=== PATIENT | female | born 1975 | race Caucasian/White ===

== ENCOUNTER 2017-10-29 12:38 | Day surgery (SDC) | payer BC ==
[2017-10-29] MEDS ORDERED: Bupivacaine 0.5% PF 10 ML VIAL INJ ONE (13:17)
[2017-10-29 14:43] VITALS: BP 144/88
--- NOTE | 2017-10-30 00:58 | OP ---
DATE OF OPERATION: 10/29/17 [facility] DATE OF : 75 SURGEON: Joe Delaney MD STROKE BELT SANDER OPERATOR: RODRIGUEZ Chong ANESTHESIOLOGIST: None. ANESTHESIA: Local only with 0.5% Marcaine used for digital block. PRE-OP DIAGNOSIS: Left thumb dorsal skin and subcutaneous mass. POST-OP DIAGNOSIS: Left thumb dorsal skin and subcutaneous mass. OPERATIVE PROCEDURE: Excision of left thumb dorsal skin and subcutaneous mass. INDICATIONS: Lb has had a mass externally over the dorsum of the dorsum of the left thumb IP joint over the last couple of months. She is unsure what started it all. She does not remember getting any foreign material there. I told her we should excise and get a diagnosis. She understands the risk of wound problems and stiffness. ESTIMATED BLOOD LOSS: 1 mL. COMPLICATIONS: None. FINDINGS: There was some black material just deep to the skin and almost in the dermal layer noted upon mass excision. DESCRIPTION OF PROCEDURE: Lb was seen in the preoperative holding area. He had a time-out. I then performed the digital block with 0.5% Marcaine. A short time later he came back to the operating room. The arm was prepped and draped in the usual fashion. A time-out was performed. I ellipsed out the most central disease portion of the skin together with the mass. The deep excision was carried out marginally with the [place] blade. Once the entirety of the mass was excised, handed off the specimen. I noted some blackish looking almost foreign material. It looked like it was in the dermis. Once the mass was fully excised, I closed the horizontal wound with a couple of 4-0 nylon interrupted sutures. The wound was dressed and then the tourniquet which had been placed at the beginning of the procedure was released. The thumb picked up immediately. She was then taken to the recovery room in stable condition. [id number]/[facility] #: [id number] [facility] MEDICAL CENTERGricelda
== END 2017-10-29 14:56 | disposition home or self-care (01) ==
LOC: OREAST 12:38
PROVIDERS: ATTEND Orthopaedic Surgery Hand Surgery
DX: R22.32 Localized swelling, mass and lump, left upper limb (principal)
CPT/HCPCS: 88304

== ENCOUNTER 2018-08-23 12:39 | Observation (INO) | payer BC ==
[2018-08-23] MEDS ORDERED: NS 0.9% 1000 ML** 1,000 ML IV ONE (13:00)
--- NOTE | 2018-08-23 13:16 | ED ---
Abdominal Pain/Female - HPI Summary HPI Summary: This pt is a 43 y/o female presenting to [facility] c/o RLQ abd pain and nausea today. Pt reports she was feeling well yesterday and this morning woke up with abd pain. She took antacid and Tylenol this morning without relief. Denies vomiting, diarrhea, constipation. The last time she ate was yesterday during dinner, has not had food today. She reports having had this pain once before but it "went away after a couple of hours." LMP: does not get menses because she has an IUD. Denies hx of appendectomy. Denies any other PMHx o PSHx. Pt notes drinking wine, but denies tobacco and drug use. - History of Current Complaint Chief Complaint: EDAbdPain Stated Complaint: ABD PAIN PER PT Time Seen by Provider: 08/23/18 13:00 Hx Obtained From: Patient Onset/Duration: Lasting Hours, Still Present Timing: Hours Severity Currently: Severe Pain Intensity: 8 Pain Scale Used: 0-10 Numeric Location: Discrete At: RLQ Radiates: No Aggravating Factor(s): Nothing Alleviating Factor(s): Nothing Associated Signs and Symptoms: Positive: Nausea. Negative: Fever, Constipation , Vomiting, Diarrhea Allergies/Adverse Reactions: Allergies Allergy/AdvReac Type Severity Reaction Status Date / Time No Known Allergies Allergy Verified 08/23/18 12:48 PMH/Surg Hx/FS Hx/Imm Hx Endocrine/Hematology History: Denies: Hx Diabetes Cardiovascular History: Denies: Hx Hypertension Musculoskeletal History: Denies: Hx Rheumatoid Arthritis, Hx Osteoporosis - Cancer History Hx Chemotherapy: No Hx Radiation Therapy: No - Surgical History Surgery Procedure, Year, and Place: None Infectious Disease History: No Infectious Disease History: Denies: Traveled Outside the [place] in Last 30 Days - Family History Known Family History: Negative: Cardiac Disease, Hypertension, Diabetes - Social History Alcohol Use: Daily Alcohol Amount: 1 GLASS OF WINE AT DINNER Substance Use Type: Reports: None Smoking Status (MU): Never Smoked Tobacco Review of Systems Negative: Fever, Chills Positive: Abdominal Pain, Nausea. Negative: Vomiting, Diarrhea, Other - NEG: constipation All Other Systems Reviewed And Are Negative: Yes Physical Exam - Summary Physical Exam Summary: VITAL SIGNS: Reviewed. GENERAL: Patient is a well-developed and nourished female who is lying comfortable in the stretcher. Patient is not in any acute respiratory distress. HEAD AND FACE: Normocephalic and atraumatic. EYES: PERRLA, EOMI x 2, No injected conjunctiva. EARS: Hearing grossly intact. Ear canals and tympanic membranes are WNL. MOUTH: Oropharynx within normal limits. Oral mucosa is dry. NECK: Supple, trachea is midline, no adenopathy, no JVD. CHEST: Symmetric, no tenderness at palpation LUNGS: Clear to auscultation bilaterally. No wheezing or crackles. CVS: RRR, S1 and S2 present, no murmurs or gallops appreciated. ABDOMEN: Soft, RLQ tenderness. No signs of distention. Positive bowel sounds. EXTREMITIES: FROM in all major joints, no edema, no cyanosis or clubbing. NEURO: Alert and oriented x 3. No acute neurological deficits. Speech is normal. SKIN: Dry and warm. Triage Information Reviewed: Yes Vital Signs On Initial Exam: Initial Vitals Temp Pulse Resp BP Pulse Ox 97.8 F 57 16 200/92 100 08/23/18 12:46 08/23/18 12:46 08/23/18 12:46 08/23/18 12:46 08/23/18 12:46 Vital Signs Reviewed: Yes Diagnostics - Vital Signs Vital Signs Temp Pulse Resp BP Pulse Ox 08/23/18 12:46 97.8 F 57 16 200/92 100 - Laboratory Result Diagrams: 08/23/18 13:12 08/23/18 13:12 Lab Statement: Any lab studies that have been ordered have been reviewed, and results considered in the medical decision making process. - CT Abdomen/Pelvis CT CT Interpretation Completed By: Radiologist Summary of CT Findings: IMPRESSION: Acute appendicitis. No visualized appendicolith. Negative for periappendiceal abscess. Results discussed [facility] Dr. Duque 08/23/2018 4:28 PM EDT. - EKG 13:25 Cardiac Rate: Bradycardia - at 50 bpm EKG Rhythm: Sinus Bradycardia Summary of EKG Findings: No ST elevations. Normal axis. Abdominal Pain Fem Course/Dx - Course Course Of Treatment: This pt is a 43 y/o female presenting to [facility] c/o RLQ abd pain and nausea today. Pt reports she was feeling well yesterday and this morning woke up with abd pain. She took antacid and Tylenol this morning without relief. Denies vomiting, diarrhea, constipation. The last time she ate was yesterday during dinner, has not had food today. She reports having had this pain once before but it "went away after a couple of hours.". LMP: does not get menses because she has an IUD. Denies any other PMHx o PSHx. Pt notes drinking wine, but denies tobacco and drug use. Blood work without any significant abnormality except for WBCs of 15, sodium 132, chloride 98, creatinine 0.48, glucose 124, CRP of 11.7. Beta hCG is negative. Abdominal and pelvic CT IMPRESSION: #. Acute appendicitis. No visualized appendicolith. Negative for periappendiceal abscess. I discussed my physical exam and findings with Dr. Syed from surgery and he accepted the patient for admission to his services. Patient is hemodynamically stable alert oriented 3 - Diagnoses Provider Diagnoses: Acute appendicitis - Provider Notifications Discussed Care Of Patient With: Luis Reid Time Discussed With Above Provider: 16:29 Instructed by Provider To: Other - Dr. Reid, radiologist, reports CT shows acute appendicitis. [16:32] Discussed with Dr. Syed, hospitalist, who accepted the pt for admission. Discharge - Sign-Out/Discharge Documenting (check all that apply): Patient Departure - Admit to [facility] surgery Patient Received Moderate/Deep Sedation with Procedure: No - Discharge Plan Condition: Stable Disposition: ADMITTED TO [facility] Referrals: Erick Elias MD [Primary Care Provider] - - Billing Disposition and Condition Condition: STABLE Disposition: Admitted to [facility] - Attestation Statements Document Initiated by Duane: Yes Documenting Scribe: Carmela Carrasquillo Provider For Whom Duane is Documenting (Include Credential): Luis Duque MD Scribe Attestation: Carmela Parker, scribed for Luis Duque MD on 08/23/18 at 1636. Scribe Documentation Reviewed: Yes Provider Attestation: The documentation as recorded by the Carmela barker accurately reflects the service I personally performed and the decisions made by me, Luis Duque MD Status of Scribe Document: Viewed
[2018-08-23 13:57] LABS: ABS Lymphocytes 0.3 10^3/ul (1.0-4.8); ABS Monocytes 0.6 10^3/ul (0-0.8); Hematocrit 40 % (35-47); Hemoglobin 13.3 g/dL (12.0-16.0); Lymphocyte % 2.1 %; Mean Corpuscular HGB Conc 34 g/dL (31-36); Mean Corpuscular Hemoglobin 31 pg (27-31); Mean Corpuscular Volume 93 fL (80-97); Mean Platelet Volume 8.4 fL (7.4-10.4); Platelet Count 239 10^3/uL (150-450); Red Blood Count 4.25 10^6 /uL (3.70-4.87); Red Cell Distribution Width 13 % (10.5-15)
[2018-08-23 14:17] LABS: ALT 24 U/L (7-52); AST 23 U/L (13-39); Albumin 4.4 g/dL (3.2-5.2); Albumin/Globulin Ratio 1.6 (1-3); Alkaline Phosphatase 55 U/L (34-104); Amylase 50 U/L (29-103); Anion Gap 7 mmol/L (2-11); BUN/Creatinine Ratio 18.8 (8-20); Blood Urea Nitrogen 9 mg/dL (6-24); C Reactive Protein 11.78 mg/L (<8.01); CO2 Carbon Dioxide 27 mmol/L (22-32); Calcium 9.2 mg/dL (8.6-10.3); Chloride 98 mmol/L (101-111); Creatine Kinase 70 U/L (10-223); EGFR African American 170.8 (>60); EGFR Non-African American 141.2 (>60); Globulin 2.8 g/dL (2-4); Glucose 124 mg/dL (70-100); Potassium 3.8 mmol/L (3.5-5.0); Sodium 132 mmol/L (135-145); Total Protein 7.2 g/dL (6.4-8.9)
[2018-08-23 14:21] LABS: HCG Pregnancy < 0.60 mIU/mL
[2018-08-23] MEDS ORDERED: Iohexol 300* (CONTRAST) 10 ML SDV IV ONE (15:22)
[2018-08-23 16:41] LABS: Urine Appearance Clear; Urine Bacteria 1+ (Absent); Urine Bilirubin Negative (Negative); Urine Blood 2+ (Negative); Urine Color Straw; Urine Glucose Negative (Negative); Urine Ketones 1+ (Negative); Urine Nitrite Negative (Negative); Urine Protein Negative (Negative); Urine Red Blood Cell 3+(>10/hpf) (Absent); Urine Specific Gravity 1.005 (1.010-1.030); Urine Squamous Epithelial Cell Present (Absent); Urine Urobilinogen Negative (Negative); Urine White Blood Cell Trace(0-5/hpf) (Absent)
[2018-08-23] MEDS ORDERED: ED Piperacillin/Tazobac 3.375 3.375 GM/100 ML PREMIX.SET IVPB ONE (17:01)
[2018-08-23] MEDS ORDERED: Piperacillin/Tazobac (*) 3.375 GM BAG ONE (17:12)
[2018-08-23] MEDS ORDERED: ZOSYN 3.375 GM x ONE DOSE over 30 miuntes IVPB ×2 (17:15)
[2018-08-23] MEDS ORDERED: Lidocaine 2% PF * 5 ML VIAL ONE (17:16)
[2018-08-23] MEDS ORDERED: Cisatracurium* 2 MG/ML MDV 5 ML ONE (17:16)
[2018-08-23] MEDS ORDERED: Propofol* 10 MG/ML 20 ML BTL ONE (17:16)
[2018-08-23] MEDS ORDERED: Midazolam* 1 MG/ML 5 ML VIAL (5 MG) ONE (17:16)
[2018-08-23] MEDS ORDERED: Ondansetron INJ* 2 MG/ML VIAL ONE (17:16)
[2018-08-23] MEDS ORDERED: Dexamethasone IV* 4 MG/ML 1 ML (4 MG) ONE (17:16)
[2018-08-23] MEDS ORDERED: fentaNYL* 50 MCG/ML 2 ML VIAL (100 MCG VIAL) ONE (17:16)
[2018-08-23] MEDS ORDERED: Bupivacaine 0.25% EPI 200,000* 30 ML SDV ONE (17:26)
[2018-08-23] MEDS ORDERED: Metoclopramide IV* 5 MG/ML 2 ML VIAL ONE (18:05)
[2018-08-23] MEDS ORDERED: EPHEDrine (Pressors)* 50 MG/ML VIAL ONE (18:06)
--- NOTE | 2018-08-23 18:41 | HP ---
CC: Dr. Octaviano Elias * HISTORY AND PHYSICAL: DATE OF ADMISSION: 08/23/18 CHIEF COMPLAINT: Right lower quadrant abdominal pain. HISTORY OF PRESENT ILLNESS: Ms. Lb Joyce is a very healthy 43-year-old woman who woke up this morning with generalized abdominal discomfort. This was associated with some anorexia, slight nausea but no vomiting. She had no fever , shakes, or chills. She had no diarrhea. The pain worsened, became more localized in the right lower quadrant. She was seen initially down in the [facility] and referred to the emergency room. In the emergency room, she was noted to be afebrile. She had tenderness in the right lower quadrant of her abdomen. She was hemodynamically stable with no tachycardia. Laboratory workup included a white blood cell count of 15,000. test was negative. C-reactive protein was 12. She underwent a CT scan of the abdomen and pelvis. I did review these images. This shows acute appendicitis without evidence of perforation, abscess, or extraluminal air to suggest other pathology to suggest perforation. Surgical consultation was obtained. PAST MEDICAL HISTORY: Unremarkable. PAST SURGICAL HISTORY: 1. section. 2. IUD placement. MEDICATIONS: None. ALLERGIES: She has no known drug allergies. SOCIAL HISTORY: She is and has 2 children. 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 She does not use tobacco, drinks alcohol on a social basis. She denies use of illicit drugs. REVIEW OF SYSTEMS: Cerebrovascular: No dizziness or visual disturbances. Cardiovascular: No chest pain, shortness of breath. Pulmonary: No wheezing or hemoptysis. GI: As per above. She has no chronic abdominal discomfort, weight loss, or change in bowel habits. : No urgency or hematuria. PHYSICAL EXAMINATION GENERAL: She is a slender female, appears to be in no apparent distress. She is awake, alert, conversive. VITAL SIGNS: Temperature is afebrile, pulse 74, blood pressure 150/93. LUNGS: Clear to auscultation with normal respiratory effort. HEART: Regular rate and rhythm without murmurs, rubs, or gallops. ABDOMEN: Soft and firm and nondistended. She has diminished bowel sounds throughout. She has a well-healed low transverse incision without hernia above the pubic area. She has tenderness with some voluntary guarding in the right lower quadrant, there is no generalized peritonitis. PSYCHIATRIC: She is awake, alert, and oriented x3. She has normal judgment and insight. IMPRESSION: Acute appendicitis. PLAN: I discussed the findings on the CT scan and her clinical history and informed her of the diagnosis of acute appendicitis. I do recommend that she undergo an urgent laparoscopic appendectomy this evening for treatment of her appendicitis. After our discussion, she would like to proceed with surgery. I discussed the procedure with her and the risks of, but not limited to, bleeding, infection, intraabdominal abscess formation, injury to peritoneal and retroperitoneal structures, possibility of an open procedure, abscess formation , the risks of anesthesia, deep vein thrombosis, i.e., blood clots, and hospital stay and recovery times were all discussed. We also discussed nonoperative management of acute appendicitis with IV and oral antibiotics and the risks and benefits associated with this treatment. This is not my recommendation and if she decided to go this route, this would go against my recommendations. After discussing the pros and cons of nonoperative management, she would like to proceed with surgery. 1. Laparoscopic appendectomy tonight. 2. She will be kept n.p.o. 3. IV fluids will be administered. 4. We will start IV antibiotics. [id number]/[facility] #: [id number] [facility]
[2018-08-23] MEDS ORDERED: Ketorolac INJ* 30 MG/ML 1 ML VIAL ONE (19:28)
--- NOTE | 2018-08-23 19:31 | BRIEFOPN ---
Brief Operative Note - Surgery Procedures: OPERATIVE REPORT Pre-op: Acute appendicitis Post-Op: Acute suppurative appendicitis with localized purulent appendicitis Procedure:Laparoscopic appendectomy Surgeon: MD Yahaira Asst: none Anes: general with local , Dr. Wilkes IVF:1 liter of crystalloid EBL:min Specimen: appendix Drain: none Wound: 4 To PACU
[2018-08-23] MEDS ORDERED: Ketorolac INJ* 30 MG/ML 1 ML VIAL IV PUSH PRN (19:33)
[2018-08-23] MEDS ORDERED: Ondansetron INJ* 2 MG/ML VIAL IV PRN ×2 (19:33→19:34)
[2018-08-23] MEDS ORDERED: Morphine INJ* 10 MG/ML 1 ML CARPUJECT IV PRN (19:33)
[2018-08-23] MEDS ORDERED: Acetaminophen TAB* 325 MG PO PRN (19:33)
[2018-08-23] MEDS ORDERED: oxyCODONE/Acetamin 5/325 MG* TAB PO PRN (19:33)
[2018-08-23] MEDS ORDERED: Naloxone* 0.4 MG/ML 1 ML VIAL IV PRN (19:34)
[2018-08-23] MEDS ORDERED: fentaNYL* 50 MCG/ML 2 ML VIAL (100 MCG VIAL) IV PRN (19:34)
[2018-08-23] MEDS ORDERED: Ketorolac INJ* 30 MG/ML 1 ML VIAL IV PRN (19:34)
[2018-08-23] MEDS ORDERED: NS 0.9% 1000 ML** 1,000 ML IV SCH (19:45)
[2018-08-23] MEDS: Piperacillin/Tazobac ADVAN(*) 3.375 GM in NS 0.9% 100 ML* 100 ML IVPB SCH (21:45)
--- NOTE | 2018-08-24 01:12 | OP ---
CC: Dr. Erick Elias * DATE OF OPERATION: 08/23/18 - ROOM #341 DATE OF : 75 SURGEON: Jason Syed MD HANDLE SANDER OPERATOR: None. ANESTHESIOLOGIST: Dr. Wilkes. ANESTHESIA: General with local. PRE-OP DIAGNOSIS: Acute appendicitis. POST-OP DIAGNOSES: Acute suppurative appendicitis with localized purulent peritonitis. OPERATIVE PROCEDURE: Laparoscopic appendectomy. ESTIMATED BLOOD LOSS: Minimal. IV FLUIDS: 1 L of crystalloid. DRAINS: None. WOUND CLASSIFICATION: 4. COMPLICATIONS: None. SPECIMEN: Appendix. FINDINGS: The patient had acute suppurative appendicitis with fibrinous exudate with pus in the right lower quadrant extending down into the right portion of the pelvis. There was no evidence of abscess or perforation; however. DESCRIPTION OF PROCEDURE: Written informed consent was obtained, the abdomen was marked with indelible ink and preoperative antibiotics were administered. The patient was taken to the operating room and placed in the supine position. Sequential compression devices and a warming blanket were applied. General anesthesia was administered and the abdomen was prepped and draped in the usual sterile fashion. Time-out verification was completed. A vertical incision was made at the midline just at the base of the umbilicus and extending somewhat inferiorly. Then peritoneal cavity was entered under direct vision. A 12-mm blunt port was inserted and the abdomen was insufflated to 15 mmHg. Under direct vision, a 5-mm port was placed in the left lower abdominal wall and a second 5-mm port was placed in the suprapubic position. There was purulence in the pelvis on the right as well as the right lower quadrant extending up towards the ascending colon. There was also some fibrinous exudate. This was fairly localized, however, and the cecum and the terminal ileum appeared to be unremarkable. I was able to identify the appendix as it curled up underneath the cecum and I was able to grasp this and it appeared to be acutely suppuratively inflamed without evidence of gangrene or signs of perforation. There was no abscess. The mesoappendix was then taken sequentially from the tip towards the base. The base was somewhat retrocecal as it curled around posteriorly and entered the cecum, and I divided the lateral peritoneal attachments and some extraperitoneal fat to expose the base which was unremarkable as well as the cecum. I then divided the appendix at its base with an Endo MILLI glynn load of 45 mm stapler. The appendix was placed in an EndoCatch bag and brought out through the umbilical incision. The staple line was intact without evidence of hemorrhage. There was some bleeding from some of the fatty retroperitoneal tissue at the base of the cecum and small hematoma along the serosa of the cecum and I did place 1 single 2-0 silk suture, tied laparoscopically to imbricate this area and control hemorrhage. Hemostasis was assured and the area was irrigated thoroughly. It was about a 1-1/2 to 2 liters of saline until clear. All ports were then removed under direct vision of the camera. The umbilical fascia was closed with interrupted 0 Vicryl suture. The skin at all 3 incisions was approximated with subcuticular 4-0 Vicryl suture. Steri-Strips were applied. The patient tolerated the procedure well, was taken to the recovery room in stable condition. [id number]/[facility] #: [id number] MTDD
[2018-08-24] MEDS: Piperacillin/Tazobac ADVAN(*) 3.375 GM in NS 0.9% 100 ML* 100 ML IVPB SCH ×2 (05:23→13:45)
--- NOTE | 2018-08-24 10:14 | PN ---
Progress Note - Progress Note Date of Service: 08/24/18 Note: S: POD #1. On Zosyn. Denies sig pain. No N/V. Had BM this a.m. Ambulating well. No SOB. O: Vital Signs - 8 hr 08/24/18 08/24/18 08/24/18 02:18 03:29 07:23 Temperature 97.7 F 98.3 F Pulse Rate 64 62 Respiratory 17 16 Rate Blood Pressure 95/51 92/46 (mmHg) O2 Sat by Pulse 97 99 100 Oximetry 08/24/18 09:20 Temperature Pulse Rate Respiratory 16 Rate Blood Pressure (mmHg) O2 Sat by Pulse Oximetry Intake and Output Last 24 Hours 08/22/18 08/23/18 08/24/18 08/25/18 06:59 06:59 06:59 06:59 Intake Total 1460 Output Total 900 900 Balance 560 -900 Weight 105 lb Intake: IV Fluids 1000 LR 1000 IVPB 100 ABX - PIPERACILLIN 100 Oral 360 Output: Urine 900 900 Other: # Bowel Movements 0 1 Estimated Stool Amount Medium Gen: up and ambulating; NAD Heart: reg w/ murmur (baseline) Lungs: clear Abd: lap sites ok; +BS; soft; min tenderness at incisions only A: s/p lap appy for acute suppurative appendicitis, doing well P: discussed w/ Dr. Syed; likely home later today after add'l IV abx; no add'l abx upon d/c; instructions reviewed.
[2018-08-24 11:23] VITALS: BP 109/59
== END 2018-08-24 16:05 | disposition home or self-care (01) ==
LOC: ED 12:39 → AA 19:36 → SSU 20:15
PROVIDERS: ADMIT Surgery; ATTEND Surgery
DX: K35.30 Acute appendicitis with localized peritonitis, without perforation or gangrene (principal); R10.31 Right lower quadrant pain; Z97.5 Presence of (intrauterine) contraceptive device
CPT/HCPCS: 36415; 74177; 80053; 81003; 81015; 82150; 82550; 83605; 83690; 84702; 85025; 86140; 87086; 88304; 93005; 96365; 96375; 99284; C1776; G0378; J1100; J1885; J2250; J2405; J2543; J2704; J2765; J3010; Q9967